=== PATIENT | female | born 1945 ===

== ENCOUNTER 2017-01-24 10:08 | Inpatient (IN) | payer MEDICARE, MEDICAID ==
[2017-01-24 10:15] VITALS: BMI 25.7
[2017-01-24] MEDS ORDERED: levoFLOXacin 750 mg in D5W 750 MG/150 ML BAG IVPB STA (10:34)
[2017-01-24] MEDS ORDERED: Cefepime IV 2 gm in NS 2 GM/100 ML BAG IVPB STA (10:34)
[2017-01-24] MEDS ORDERED: Vancomycin 1gm in NS 250ml 1 GM/250 ML BAG IVPB STA (10:34)
--- NOTE | 2017-01-24 10:56 | ED PDOC ---
Arrival/HPI - General Chief Complaint: Altered Mental Status Time Seen by Provider: 01/24/17 10:34 Historian: Intermediate, EMS - Critical Care Critical Care Minutes: 45 minutes - History of Present Illness Narrative History of Present Illness (Text): 01/24/17 10:39 Ashley Hughes is a 71 year old female, whose past medical history includes COPD , dementia, g-tube, hyperlipidemia and hypertension, presents to the emergency department from [facility] via EMS for respiratory distress and unresponsiveness. Patient is confused at baseline, but responsive to verbal stimuli. However today patient was in respiratory distress, tachypneic and tachycardic. Patient was hypoxic satting at 71% in RA which improved to 94% on oxygen mask and 1 nebulizer treatment. Patient was responsive only to noxious stimuli. Patient was intubated in the field by paramedics and they noted that patient with aspirate in oropharynx. Patient had an distended abdomen and had an X-ray done yesterday which showed abundant stool, but no obstruction. ROS limited due to patient's condition. Time/Duration: 1-3 hours Symptom Course: Unchanged Severity Level: Severe Activities at Onset: Light Past Medical History - Provider Review Nursing Documentation Reviewed: Yes - Infectious Disease Hx of Infectious Diseases: None - Tetanus Immunization Tetanus Immunization: Unknown - Cardiac Hx Cardiac Disorders: Yes Hx Hypertension: Yes Hx Pacemaker: No - Pulmonary Hx Respiratory Disorders: Yes Hx Asthma: Yes Hx Bronchitis: Yes Hx Chronic Obstructive Pulmonary Disease (COPD): Yes - Neurological Hx Neurological Disorder: Yes (cerebral hemorrhage) Hx Dementia: Yes Hx Paralysis: Yes (pt contracted) Hx Syncope: Yes - HEENT Hx HEENT Disorder: No - Renal Hx Renal Disorder: No - Endocrine/Metabolic Hx Endocrine Disorders: No - Hematological/Oncological Hx Blood Disorders: No Hx Blood Transfusions: No (as per son) - Integumentary Hx Dermatological Disorder: No - Musculoskeletal/Rheumatological Hx Musculoskeletal Disorders: Yes - Gastrointestinal Hx Gastrointestinal Disorders: Yes Hx Gastroesophageal Reflux: Yes - Genitourinary/Gynecological Hx Genitourinary Disorders: Yes Hx Incontinence: Yes - Psychiatric Hx Psychophysiologic Disorder: No Hx Emotional Abuse: No (appears cared for) Hx Physical Abuse: No (pt with dependent care ) Hx Substance Use: No - Past Surgical History Past Surgical History: Unable to Obtain - Anesthesia Hx Anesthesia Reactions: No Hx Malignant Hyperthermia: No - Suicidal Assessment Feels Threatened In Home Enviroment: No Family/Social History - Physician Review Nursing Documentation Reviewed: Yes Family/Social History: No Known Family HX Smoking Status: Never Smoked Hx Alcohol Use: No Hx Substance Use: No Hx Substance Use Treatment: No Allergies/Home Meds Allergies/Adverse Reactions: Allergies No Known Allergies Allergy (Verified 01/24/17 10:14) Home Medications: Home Meds Medication Instructions Recorded Confirmed Atorvastatin Calcium [Lipitor] 10 mg PEG HS 04/28/14 01/24/17 Memantine HCl [Namenda Xr] 28 mg PEG DAILY 06/29/14 01/24/17 Acetaminophen [Tylenol 325mg tab] 1,000 mg PEG BID 08/09/16 01/24/17 Ascorbate Calcium [Vitamin C] 500 mg PEG BID 08/09/16 01/24/17 Aspirin [Aspirin Chewable] 81 mg PEG DAILY 08/09/16 01/24/17 Ergocalciferol (Vitamin D2) 50,000 iu PEG QWK 08/09/16 01/24/17 [Vitamin D2] Latanoprost 0.005% Opht [Xalatan 1 drop BOTHEYES HS 08/09/16 01/24/17 Opht] levETIRAcetam [Keppra] 250 mg PEG TID 08/09/16 01/24/17 Albuterol/Ipratropium [Duoneb 3 1 inh INH PRN PRN 01/24/17 01/24/17 mg/0.5 mg (3 ml) UD] Omeprazole [Omeprazole] 20 mg PEG BID 01/24/17 01/24/17 Review of Systems - Review of Systems Systems not reviewed;Unavailable: Respiratory Distress Physical Exam - Physical Exam Narrative Physical Exam (Text): Constitutional: Respiratory distress. Intubated Head: Normocephalic. Atraumatic. Eyes: PERRL. ENT: Moist mucous membranes. Neck: Supple. Cardiovascular: Regular rate. Respiratory: Diffuse wheezing. Ronchi right lung. GI: Soft. Nontender. Distended. g-tube Back: No CVA tenderness. Decubitus ulcer. Skin: No rash. Neurologic: Intubated. Vital Signs Reviewed: Yes Vital Signs Temp Pulse Resp BP Pulse Ox 01/24/17 12:33 101 H 12 62/31 L 96 01/24/17 12:17 100 H 12 78/36 L 96 01/24/17 12:05 96 H 12 78/39 L 96 01/24/17 11:05 107 H 12 86/37 L 96 01/24/17 10:50 107 H 12 75/41 L 96 01/24/17 10:25 103.4 F H 84 12 110/41 L 76 L Temperature: Febrile Blood Pressure: Hypotensive Pulse: Regular Respiratory Rate: Mechanically Ventilated Appearance: Positive for: Non-Toxic Pain Distress: None Mental Status: Positive for: other (unresponsive ) Medical Decision Making ED Course and Treatment: 01/24/17 11:03 Impression: A 71 year old female who presents to the emergency department complaining for respiratory distress and unresponsiveness. Plan: -- Labs -- Chest X-ray -- Levaquin -- Maxipime -- IV fluids -- Vancomycin -- Blood Culture -- Urine Culture -- Urinalysis -- Reassess and disposition Progress Notes: 01/24/17 11:04 Patient was febrile. Rectal Tylenol administered. Code Sepsis called. 01/24/17 11:07 Chest X-ray interpreted by me: Shows ET tube in right main stem. ground water technician at bedside advised to withdraw 2 cms. 01/24/17 12:08 PROCEDURE: CENTRAL LINE PLACEMENT Performed by the emergency provider, Time: 12:08 Consent: Discussion of the risks, benefits, and alternatives to the procedure, along with informed consent was precluded by the urgency of the procedure and the patient condition. Skin Preparation: Hand hygiene performed prior to central venous catheter insertion. Sterile field, sterile drape, sterile technique, and cap and gown were used. The area was cleansed with 2% Chlorhexidine. Location: right IJ Ultrasound guidance: yes Technique: The landmarks for the line placement were identified. The vessel was cannulated and a non-tunneled 7.0 Fr triple lumen was placed using the Seldinger technique. Successful placement: Yes. Line sutured with silk and appropriate dressing applied. Assessment: Good patency and blood return through all three lumens. The ports were appropriately flushed. See post procedure X-Ray interpretation. Post-procedure: Patient tolerated the procedure well with no immediate complications. Levophed begun due to septic shock not completely responsive to NS bolus. ICU accepts patient, recommends CT head/Cspine/chest/abdomen/pelvis en route to ICU. Dr. Mandy forrester. - Lab Interpretations Lab Results: 01/24/17 11:00 01/24/17 11:00 Lab Results 01/24/17 11:00: Sodium 145, Chloride 102, Potassium 4.8, Carbon Dioxide 20 L, Anion Gap 28 H, BUN 61 H, Creatinine 3.7 H, Est GFR ( Amer) 15, Est GFR ( Non-Af Amer) 12, Random Glucose 144 H, Calcium 10.9 H, Phosphorus 6.0 H, Magnesium 6.0 H*, Total Bilirubin 1.8 H, AST 55 H, ALT 58 H, Alkaline Phosphatase 121, Troponin I 0.04 D, NT-Pro-B Natriuret Pep 6770 H, Total Protein 6.9, Albumin 3.2, Globulin 3.7, Albumin/Globulin Ratio 0.9 L 01/24/17 11:00: pO2 42, VBG pH 7.04 L*, VBG pCO2 76.0 H*, VBG HCO3 20.6 L, VBG Total CO2 22.9, VBG O2 Sat (Calc) 63.5, VBG Base Excess -11.3 L, VBG Potassium 4.7, Sodium 141.0, Chloride 108.0 H, Glucose 141 H, Lactate 12.0 H*, FiO2 21.0, Venous Blood Potassium 4.7 01/24/17 11:00: PT 14.6 H, INR 1.35 H, APTT 31.1 H 01/24/17 11:00: WBC 2.1 L* D, RBC 4.21, Hgb 13.2, Hct 37.5, MCV 89.1, MCH 31.4, MCHC 35.2, RDW 13.8, Plt Count 252, MPV 11.1 H, Gran % 48.6 L, Lymph % (Auto) 45.1 H, [place] % (Auto) 5.8, Eos % (Auto) 0.0 L, Baso % (Auto) 0.5, Gran # 1.00 L , Lymph # 0.9 L, [place] # 0.1, Eos # 0.0, Baso # 0.01 I have reviewed the lab results: Yes - RAD Interpretation Radiology Orders: 01/24/17 10:34 CHEST PORTABLE [RAD] Stat 01/24/17 11:07 CHEST PORTABLE [RAD] Stat 01/24/17 12:09 CHEST PORTABLE [RAD] Stat 01/24/17 12:11 CERVICAL SPINE W/O CONTRAST [CT] Stat CHEST,ABDOMEN, PELVIS W/O CONT [CT] Stat HEAD W/O CONTRAST [CT] Stat - Medication Orders Current Medication Orders: NOREPINEPHRINE BIT/0.9 % NACL (Norepinephr-0.9% Nacl 4 Mg/250) 4 mg in 250 mls @ 15.24 mls/hr IV .[id number] PRN; Protocol PRN Reason: TITRATE Last Admin: 01/24/17 12:35 Dose: 22.5 mls/hr Comments: low bp Discontinued Medications Acetaminophen (Tylenol 650 Mg Supp) Confirm Administered Dose 650 mg .ROUTE .STK -MED ONE Stop: 01/24/17 10:16 Last Admin: 01/24/17 10:20 Dose: 650 mg Levofloxacin/Dextrose (Levaquin 750mg) 750 mg in 150 mls @ 100 mls/hr IVPB STAT STA Stop: 01/24/17 12:03 Last Admin: 01/24/17 12:28 Dose: 100 mls/hr Cefepime HCl (Maxipime 2gm) 2 gm in 100 mls @ 100 mls/hr IVPB STAT STA PRN Reason: Protocol Stop: 01/24/17 11:33 Last Admin: 01/24/17 11:00 Dose: 100 mls/hr Sodium Chloride 2,100 ml/ IV (SUPPLIES) 2,100 mls @ 4,082.34 mls/hr IV ONCE ONE PRN Reason: 60 ML/KG/HR Stop: 01/24/17 10:35 Last Admin: 01/24/17 11:10 Dose: 4,082.34 mls/hr Vancomycin HCl (Vancomycin 1gm) 1 gm in 250 mls @ 167 mls/hr IVPB STAT STA PRN Reason: Protocol Stop: 01/24/17 12:03 Norepinephrine Bitartrate 4 mg (/ Sodium Chloride) 254 mls @ 15.24 mls/hr IV .[id number] PRN; Protocol; 4 MCG/MIN PRN Reason: TITRATE PER MD ORDER NOREPINEPHRINE BIT/0.9 % NACL (Norepinephr-0.9% Nacl 4 Mg/250) 4 mg in 250 mls @ 15.24 mls/hr IV DAILY KARIN Norepinephrine Bitartrate (Levophed) Confirm Administered Dose 4 mg IV .STK-MED ONE Stop: 01/24/17 11:59 Last Admin: 01/24/17 12:29 Dose: - Scribe Statement The provider has reviewed the documentation as recorded by the Xander Denney Provider Attestation: All medical record entries made by the Rubiaibtory were at my direction and personally dictated by me. I have reviewed the chart and agree that the record accurately reflects my personal performance of the history, physical exam, medical decision making, and the department course for this patient. I have also personally directed, reviewed, and agree with the discharge instructions and disposition. Disposition/Present on Arrival - Present on Arrival Any Indicators Present on Arrival: No History of DVT/PE: No History of Uncontrolled Diabetes: No Urinary Catheter: No History of Decub. Ulcer: No History Surgical Site Infection Following: None - Disposition Have Diagnosis and Disposition been Completed?: Yes Diagnosis: Altered mental status, Pneumonia, Septic shock Disposition: HOSPITALIZED Disposition Time: 12:15 Patient Plan: Admission Condition: CRITICAL
[2017-01-24 11:11] LABS: BASO # 0.01 K/mm3 (0.0-2.0); BASO % 0.5 % (0.0-3.0); GRAN % 48.6 % (50.0-68.0); HEMATOCRIT 37.5 % (36.0-48.0); LYMPH # 0.9 (1.2-3.4); LYMPH % 45.1 % (22.0-35.0); MEAN CELL VOLUME 89.1 fL (80.0-105.0); MEAN CORPUSCULAR HEMOGLOBIN 31.4 pg (25.0-35.0); MEAN CORPUSCULAR HGB CONC 35.2 g/dl (31.0-37.0); MEAN PLATELET VOLUME 11.1 fl (7.0-11.0); MONO # 0.1 (0.1-0.6); MONO % 5.8 % (1.0-6.0); PLATELET COUNT 252 10^3/uL (120.0-450.0); RED CELL DISTRIBUTION WIDTH 13.8 % (11.5-14.5); VENOUS BLOOD GAS BASE EXCESS -11.3 mmol/L (0.0-2.0); VENOUS BLOOD PH 7.04 (7.32-7.43)
[2017-01-24 11:15] LABS: ADD MANUAL DIFF? NO
[2017-01-24 11:18] LABS: WHITE BLOOD COUNT 2.1 10^3/ul (4.5-11.0)
[2017-01-24 11:23] LABS: ALB/GLOB RATIO 0.9 (1.1-1.8); BILIRUBIN,TOTAL 1.8 mg/dL (0.2-1.3); CALCIUM 10.9 mg/dL (8.4-10.5); POTASSIUM 4.8 mmol/L (3.6-5.0); TOTAL PROTEIN 6.9 g/dL (5.8-8.3)
[2017-01-24 11:25] LABS: INR 1.35 (0.93-1.08); PARTIAL THROMBOPLASTIN TIME 31.1 Seconds (23.7-30.8)
[2017-01-24 11:34] LABS: TROPONIN I 0.04 ng/mL
--- NOTE | 2017-01-24 11:34 | RAD ---
HISTORY: respiratory distress, intubated COMPARISON: 06/29/2014 FINDINGS: LUNGS: Interval family right sided airspace opacities airspace opacities in most dense at the right lung base. PLEURA: No significant pleural effusion identified, no pneumothorax apparent. CARDIOVASCULAR: Top-normal heart size OSSEOUS STRUCTURES: Old right superior rib fractures. Scoliosis and thoraco lumbar spondylosis. Generalized osteopenia VISUALIZED UPPER ABDOMEN: Normal. OTHER FINDINGS: The interval endotracheal tube tip is in the right mainstem bronchus. Recommend retraction IMPRESSION: Multiple right airspace opacities with interval endotracheal tube tip in mainstem bronchus-recommend a retraction. Dr. Fernandez aware
--- NOTE | 2017-01-24 11:36 | RAD ---
HISTORY: withdrew ETT 2cm, repeat COMPARISON: 01/24/2017 at 10:55 a.m. FINDINGS: LUNGS: The previously referenced multiple airspace opacities in the right lung are renoted the less dense opacification at the right lung base. Coalescent asymmetrical pulmonary edema- patchy right lung infiltrate are considerations. The endotracheal tube is been retracted - however is still just at the janae. Consider further retraction 1.5 cm PLEURA: No significant pleural effusion identified, no pneumothorax apparent. CARDIOVASCULAR: Normal. OSSEOUS STRUCTURES: Old superior right rib fractures. Scoliosis and spondylosis and generalized osteopenia VISUALIZED UPPER ABDOMEN: Normal. OTHER FINDINGS: None. IMPRESSION: Interval change in position of endotracheal tube no longer in the right mainstem bronchus -however still low lying at the janae. Recommend additional retraction as above Anomaly right sided patchy airspace opacities -patchy infiltrates- patchy areas of pulmonary edema in metric in the right lung are considerations. Other etiologies not excluded. Clinical correlation continued follow-up recommended
[2017-01-24] MEDS: NOREPINEPHRINE BIT/0.9 % NACL 4 MG/250 ML BAG IV PRN ×3 (12:20→13:15)
--- NOTE | 2017-01-24 12:53 | RAD ---
HISTORY: s/p R IJ and ETT pull back COMPARISON: Earlier same day FINDINGS: LUNGS: Endotracheal tube has been pulled back and is in satisfactory position. Right IJ line is in the right atrium. No pneumothorax. No change in alveolar infiltrates PLEURA: No significant pleural effusion identified, no pneumothorax apparent. CARDIOVASCULAR: Normal. OSSEOUS STRUCTURES: No significant abnormalities. VISUALIZED UPPER ABDOMEN: Normal. OTHER FINDINGS: None. IMPRESSION: Endotracheal tube has been pulled back and is in satisfactory position. Right IJ line is in the right atrium. No pneumothorax. No change in alveolar infiltrates
[2017-01-24 13:11] LABS: VENOUS BLOOD GAS BASE EXCESS -13.9 mmol/L (0.0-2.0)
[2017-01-24 13:14] LABS: VENOUS BLOOD PH 6.97 (7.32-7.43)
[2017-01-24] MEDS ORDERED: Vasopressin 20 UNITS in Dextrose 5% In Water 100 ML IV SCH (13:45)
[2017-01-24 13:47] LABS: ARTERIAL BLOOD GAS HCO3 16.8 mmol/L (21-28); ARTERIAL BLOOD GAS O2 CAPACITY 14.9 mL/dl (16-24); ARTERIAL BLOOD GAS O2 CONTENT 12.5 ML/dl (15-23); ARTERIAL BLOOD HGB O2 SAT 81.9 % (95.0-98.0); CARBOXYHEMOGLOBIN 1.5 % (0.5-1.5); HHB 15.8 % (0-5); METHEMOGLOBIN 0.8 % (0.0-3.0)
[2017-01-24] MEDS ORDERED: EPINEPHrine- 1 MG in Sodium Chloride 0.9% 50 ML IV PRN (13:59)
[2017-01-24] MEDS ORDERED: Albuterol-Ipratrop 3 mg / 0.5 (3 ml) UD IH SCH (14:00)
[2017-01-24] MEDS ORDERED: metroNIDAZOLE IV 500 mg/100 ml 500 MG/100 ML BAG IVPB SCH (14:00)
[2017-01-24 15:12] VITALS: TEMP 100.2
--- NOTE | 2017-01-24 15:31 | CT ---
PROCEDURE: CT HEAD WITHOUT CONTRAST. HISTORY: ams COMPARISON: 03/03/2015 TECHNIQUE: Axial computed tomography images were obtained through the head/brain without intravenous contrast. Radiation dose: Total exam DLP = 687 mGy-cm. This CT exam was performed using one or more of the following dose reduction techniques: Automated exposure control, adjustment of the mA and/or kV according to patient size, and/or use of iterative reconstruction technique. FINDINGS: HEMORRHAGE: No intracranial hemorrhage. BRAIN: No mass effect or edema. There is a moderate degree of atrophy. There is moderate microvascular disease in the periventricular white matter. VENTRICLES: Unremarkable. No hydrocephalus. CALVARIUM: Unremarkable. PARANASAL SINUSES: Unremarkable as visualized. No significant inflammatory changes. MASTOID AIR CELLS: Unremarkable as visualized. No inflammatory changes. OTHER FINDINGS: None. IMPRESSION: Moderate atrophy. Moderate microvascular disease in the periventricular white matter. No acute findings
--- NOTE | 2017-01-24 15:55 | CT ---
PROCEDURE: CT Chest, Abdomen and Pelvis without intravenous contrast HISTORY: dyspnea, abdominal distention COMPARISON: None. TECHNIQUE: Radiation dose: Total exam DLP = 682 mGy-cm. This CT exam was performed using one or more of the following dose reduction techniques: Automated exposure control, adjustment of the mA and/or kV according to patient size, and/or use of iterative reconstruction technique. FINDINGS: CT CHEST WITHOUT CONTRAST: LUNGS: Patchy alveolar infiltrates are seen in the upper lobes. There is more dense consolidation in the lower lobes adjacent to moderate pleural effusions MEDIASTINUM: Unremarkable. Normal caliber aorta and pulmonary arterial trunk. Normal size heart. LYMPH NODES: Unremarkable. PLEURA: Unremarkable. No pneumothorax. No pleural fluid. BONES: Unremarkable. OTHER FINDINGS: None. CT ABDOMEN AND PELVIS: LIVER: There is a small amount of portal venous air seen in the left lobe on image 79 series 2. GALLBLADDER AND BILE DUCTS: Unremarkable. PANCREAS: Unremarkable. No gross lesion or ductal dilatation. SPLEEN: Unremarkable. ADRENALS: Unremarkable. No mass. KIDNEYS AND URETERS: Unremarkable. No hydronephrosis. No solid mass. VASCULATURE: Unremarkable. No aortic aneurysm. BOWEL: There is evidence of ischemic bowel with pneumatosis of small bowel in the pelvis. There is also air in the mesenteric veins which extends into the portal veins. Small droplets of extra luminal gas can also be seen. The gastrostomy tube is outside of the stomach and peritoneal cavity. There is a large amount of subcutaneous air probably related to this catheter. These findings were reviewed with Dr Fernandez at 3:45 p.m. APPENDIX: Normal appendix. PERITONEUM: Unremarkable. No free fluid. No free air. LYMPH NODES: Unremarkable. No enlarged lymph nodes. BLADDER: Unremarkable. REPRODUCTIVE: Unremarkable. BONES: No acute fracture. OTHER FINDINGS: None. IMPRESSION: Pneumatosis of the small bowel in the pelvis with air in the mesenteric veins and portal venous system consistent with bowel ischemia. Suboptimal position of gastrostomy tube in the subcutaneous tissues of the anterior abdomen with a large amount of subcutaneous air. Bilateral pneumonia and pleural effusions
--- NOTE | 2017-01-24 15:59 | CT ---
PROCEDURE: CT Cervical Spine without contrast HISTORY: Patient found on floor COMPARISON: None available. TECHNIQUE: Axial computed tomography images were obtained of the cervical spine without the use of intravenous contrast. Coronal and sagittal reformatted images were created and reviewed. Radiation dose: Total exam DLP = 606 mGy-cm. This CT exam was performed using one or more of the following dose reduction techniques: Automated exposure control, adjustment of the mA and/or kV according to patient size, and/or use of iterative reconstruction technique. FINDINGS: VERTEBRAE: No fracture. Normal alignment. No destructive bony lesion. DISCS/SPINAL CANAL/NEURAL FORAMINA: No significant central canal or neural foraminal stenosis. Discs heights are grossly preserved. PARASPINAL SOFT TISSUES: Unremarkable. OTHER FINDINGS: None. IMPRESSION: No acute fracture
--- NOTE | 2017-01-24 16:20 | CARD ---
APPROVED REPORT EKG Measurement Heart [id number] <Conclusion> Normal sinus rhythm ST & T wave abnormality, consider anterior ischemia Abnormal ECG
[2017-01-24 16:42] VITALS: RESP 35
[2017-01-24] MEDS ORDERED: NOREPINEPHRINE BIT/0.9 % NACL 4 MG/250 ML BAG IV SCH (17:30)
--- NOTE | 2017-01-24 17:41 | CP.PCM.PCO ---
Physician Communication Note - Physician Communication Note Physician Communication Note: Pt Terminal/Surgery too late to help/ bowel- sepsis-Pneumonia([facility])
[2017-01-24] MEDS ORDERED: Meropenem 1g/NS 100mL IVPB 1 GM/100 ML PIGGYBACK IVPB SCH ×2 (17:57→22:00)
--- NOTE | 2017-01-24 18:26 | CP.PCM.CON ---
History of Present Illness - History of Present Illness History of Present Illness: Infectious Disease Consultation: January 24, 2017 71 yo female with extensive past medical history but unable to communicate her history at this point in time sent to [facility] for unresponsiveness, fevers, and respiratory distress. In nursing facility patient was already hypoxic with 71% on room air. At best, she reacted to noxious stimuli. Patient was intubated in the field. EMS noted aspirate in throat. X-ray done yesterday show abundant stool in colon. CT of the abdomen now is showing pneumatosis of the small bowel in the pelvis with air in the mesenteric veins and portal venous system consistent with bowel ischemia. Suboptimal position of the gastrostomy tube in the subcutaneous tissues of the anterior abdomen with a large amount of subcutaneous air. Bilateral penumonia and pleural effusions. PMHx: Asthma, bronchitis, COPD, unsteady gait, GERDs, urinary incontinence, dementia, hypertension, history of multiple falls, cerebral hemmorhage, syncope history PSHx: Unable to Obtain, PEG done Allergies: NKDA Social Hx: No tobacco, EtOH, or illicit drug use Active Medications Albuterol/Ipratropium (Duoneb 3 Mg/0.5 Mg (3 Ml) Ud) 3 ml IH Q6H KARIN Stop: 01/25/17 02:01 Heparin Sodium (Porcine) (Heparin) 5,000 units SC Q8H KARIN PRN Reason: Protocol Last Admin: 01/24/17 14:00 Dose: 5,000 units Hydrocortisone Sodium Succinate (Solu-Cortef) 50 mg IV Q6H KARIN Last Admin: 01/24/17 14:00 Dose: 50 mg Metronidazole (Flagyl) 500 mg in 100 mls @ 100 mls/hr IVPB Q8 KARIN PRN Reason: Protocol Stop: 01/25/17 06:59 Last Admin: 01/24/17 17:48 Dose: 100 mls/hr Vasopressin 20 units/ Dextrose 101 mls @ 9.09 mls/hr IV .Q11H7M KARIN; 0.03 U/MIN PRN Reason: Protocol Last Admin: 01/24/17 13:55 Dose: 9.09 mls/hr Epinephrine HCl 1 mg/ Sodium (Chloride) 51 mls @ 15.3 mls/hr IV .Q3H20M PRN; Protocol; 5 MCG/MIN PRN Reason: TITRATE PER MD ORDER Last Admin: 01/24/17 15:03 Dose: 5 mcg/min, 15.3 mls/hr NOREPINEPHRINE BIT/0.9 % NACL (Norepinephr-0.9% Nacl 4 Mg/250) 4 mg in 250 mls @ 75 mls/hr IV .Q3H20M KARIN; 20 MCG/MIN PRN Reason: Protocol Last Admin: 01/24/17 17:30 Dose: 75 mls/hr Meropenem 1g/NS 100mL IVPB (Meropenem 1g/Ns 100ml Ivpb) 1 gm in 100 mls @ 100 mls/hr IVPB Q12 KARIN PRN Reason: Protocol Amikacin Sulfate 500 mg/ (Sodium Chloride) 102 mls @ 204 mls/hr IVPB Q8 KARIN PRN Reason: Protocol Stop: 01/24/17 18:29 Pantoprazole Sodium (Protonix Inj) 40 mg IVP DAILY KARIN Last Admin: 01/24/17 14:02 Dose: 40 mg Family Hx: none given Family at bedside. ROS: Unable to Obtain from patient. Past Patient History - Infectious Disease Hx of Infectious Diseases: None - Tetanus Immunizations Tetanus Immunization: Unknown - Past Social History Smoking Status: Never Smoked - CARDIAC Hx Cardiac Disorders: Yes Hx Hypertension: Yes Hx Pacemaker: No - PULMONARY Hx Respiratory Disorders: Yes Hx Asthma: Yes Hx Bronchitis: Yes Hx Chronic Obstructive Pulmonary Disease (COPD): Yes - NEUROLOGICAL Hx Neurological Disorder: Yes (cerebral hemorrhage) Hx Dementia: Yes Hx Paralysis: Yes (pt contracted) Hx Syncope: Yes - HEENT Hx HEENT Problems: No - RENAL Hx Chronic Kidney Disease: No - ENDOCRINE/METABOLIC Hx Endocrine Disorders: No - HEMATOLOGICAL/ONCOLOGICAL Hx Blood Disorders: No Hx Blood Transfusions: No (as per son) - INTEGUMENTARY Hx Dermatological Problems: No - MUSCULOSKELETAL/RHEUMATOLOGICAL Hx Musculoskeletal Disorders: Yes - GASTROINTESTINAL Hx Gastrointestinal Disorders: Yes Hx Gastroesophageal Reflux: Yes - GENITOURINARY/GYNECOLOGICAL Hx Genitourinary Disorders: Yes Hx Incontinence: Yes - PSYCHIATRIC Hx Psychophysiologic Disorder: No Hx Emotional Abuse: No (appears cared for) Hx Physical Abuse: No (pt with dependent care ) Hx Substance Use: No - SURGICAL HISTORY Hx Surgeries: No - ANESTHESIA Hx Anesthesia Reactions: No Hx Malignant Hyperthermia: No Meds Allergies/Adverse Reactions: Allergies Allergy/AdvReac Type Severity Reaction Status Date / Time No Known Allergies Allergy Verified 01/24/17 14:18 - Medications Medications: Current Medications Albuterol/Ipratropium (Duoneb 3 Mg/0.5 Mg (3 Ml) Ud) 3 ml IH Q6H [facility] Stop: 01/25/17 02:01 Heparin Sodium (Porcine) (Heparin) 5,000 units SC Q8H KARIN PRN Reason: Protocol Last Admin: 01/24/17 14:00 Dose: 5,000 units Hydrocortisone Sodium Succinate (Solu-Cortef) 50 mg IV Q6H [facility] Last Admin: 01/24/17 14:00 Dose: 50 mg Metronidazole (Flagyl) 500 mg in 100 mls @ 100 mls/hr IVPB Q8 KARIN PRN Reason: Protocol Stop: 01/25/17 06:59 Meropenem 1g/NS 100mL IVPB (Meropenem 1g/Ns 100ml Ivpb) 1 gm in 100 mls @ 100 mls/hr IVPB Q12 KARIN PRN Reason: Protocol Stop: 01/24/17 22:59 Vasopressin 20 units/ Dextrose 101 mls @ 9.09 mls/hr IV .Q11H7M KARIN; 0.03 U/MIN PRN Reason: Protocol Last Admin: 01/24/17 13:55 Dose: 9.09 mls/hr Epinephrine HCl 1 mg/ Sodium (Chloride) 51 mls @ 15.3 mls/hr IV .Q3H20M PRN; Protocol; 5 MCG/MIN PRN Reason: TITRATE PER MD ORDER Last Admin: 01/24/17 15:03 Dose: 5 mcg/min, 15.3 mls/hr Norepinephrine Bitartrate 4 mg (/ Sodium Chloride) 254 mls @ 76.2 mls/hr IV .Q3H20M PRN; Protocol; 20 MCG/MIN PRN Reason: TITRATE PER MD ORDER Last Admin: 01/24/17 16:58 Dose: 20 mcg/min, 76.2 mls/hr Pantoprazole Sodium (Protonix Inj) 40 mg IVP DAILY [facility] Last Admin: 01/24/17 14:02 Dose: 40 mg Physical Exam - Constitutional Appears: Toxic, In Acute Distress, Chronically Ill Additional comments: obtunded, intubated, and ventilated. - Head Exam Additional comments: intubated and ventilated - Eye Exam Eye Exam: PERRL Pupil Exam: PERRL Additional comments: anticteric, conjunctiva pink - ENT Exam ENT Exam: Mucous Membranes Moist, Normal External Ear Exam, TM's Normal Bilaterally - Neck Exam Additional comments: intubated and ventilated. - Respiratory Exam Respiratory Exam: Decreased Breath Sounds, Rhonchi, Wheezes Additional comments: intubated and ventilated - Cardiovascular Exam Cardiovascular Exam: REGULAR RHYTHM, RRR, +S1, +S2 Additional comments: hypotensive even with pressors for blood pressure. - GI/Abdominal Exam GI & Abdominal Exam: Distended, Soft. absent: Tenderness Additional comments: G-tube in place - Extremities Exam Extremities exam: Positive for: normal inspection Additional comments: weak distal pulses. - Neurological Exam Additional comments: intubated and ventilated. Very poorly responsive. - Psychiatric Exam Psychiatric exam: Normal Affect, Normal Mood - Skin Skin Exam: Intact, Normal Color Results - Vital Signs Recent Vital Signs: Last Vital Signs Temp 100.2 F H 01/24/17 16:00 Pulse 99 H 01/24/17 16:00 Resp 35 H 01/24/17 16:00 BP 71/43 L 01/24/17 16:00 Pulse Ox 82 L 01/24/17 16:00 - Labs Result Diagrams: 01/24/17 11:00 01/24/17 11:00 Labs: Laboratory Results - last 24 hr 01/24/17 01/24/17 13:08 13:43 pCO2 54 H pO2 61 H 55.0 L HCO3 16.8 L ABG pH 7.10 L* ABG Total CO2 18.5 L ABG O2 Saturation 83.8 L ABG O2 Content 12.5 L ABG Base Excess -12.7 L ABG Hemoglobin 10.8 L ABG Carboxyhemoglobin 1.5 POC ABG HHb (Measured) 15.8 H ABG Methemoglobin 0.8 ABG O2 Capacity 14.9 L VBG pH 6.97 L* VBG pCO2 84.0 H* VBG HCO3 19.3 L VBG Total CO2 21.9 L VBG O2 Sat (Calc) 82.0 H VBG Base Excess -13.9 L VBG Potassium 4.9 Hgb O2 Saturation 81.9 L Sodium 140.0 Chloride 112.0 H Glucose 181 H Lactate 8.7 H* FiO2 21.0 60.0 Venous Blood Potassium 4.9 Assessment & Plan - Assessment and Plan (Free Text) Assessment: 71 yo female with altered mental status, respiratory distress, and hypotension. Aspiration pneumonia. More importantly, the patient found to have signs of necrotic/ischemic bowel on CT scan. Patient prognosis is very poor. The patient's best option would typically be surgery but given her current medical condition, it is doubtful that she would survive a large scale colectomy and the degree of peritonitis as well as the bilateral pneumonia (likely aspiration ) worsen the chances even more. Dismal prognosis for the patient given extent of bowel ischemia, level of hypotension, and extent of peritonitis. Case discussed with Dr. Marsh. Supportive care Thank you for allowing me to participate in the care of the patient, we will follow with you.
[2017-01-24] MEDS ORDERED: Pneumococcal 23-Valent Vaccine IM ONE (18:54)
--- NOTE | 2017-01-24 19:08 | CON ---
DATE: 01/24/2017 HISTORY OF PRESENT ILLNESS: The patient is a 71-year-old lady with history of dementia, seizure disorder, hypercholesterolemia who was found unresponsive in her room. EMS was called and the patient was delivered to [facility] ER. She was intubated for airway protection in the field. Reportedly, vomitus was found in the hypopharynx during direct laryngoscopy. In the Emergency Room, the patient was found hypotensive with elevated lactic acid level and a central line was placed and norepinephrine was started. Chest x- ray revealed patchy infiltrates bilaterally, right more than left. Septic workup initiated and broad spectrum antibiotics started. ICU consult was called for further management and monitoring. PAST MEDICAL HISTORY: Seizure disorder, dementia. ALLERGIES: NKDA. MEDICATIONS: At home, Keppra, vitamin C, Namenda, vitamin D2, omeprazole, Lipitor, aspirin, eyedrops. FAMILY HISTORY: Noncontributory. REVIEW OF SYSTEMS: Revealed 12 organ system other than mentioned in history of present illness is negative. PHYSICAL EXAMINATION: VITAL SIGNS: The patient is on 20 mcg per minute of Levophed. Her blood pressure, however is 81/53 (stress dose steroids given and vasopressin started) . The patient is on PRVC 60/5, 25, 400. GENERAL: The patient is not overbreathing the vent. She is not on any sedation. HEAD AND NECK: Atraumatic. LUNGS: Few crackles bilaterally, right more than left. HEART: Regular rate and rhythm. S1, S2 are distant. ABDOMEN: Soft, distended, nontender, no peritoneal signs. MUSCULOSKELETAL: No C/C/E. NEUROLOGIC: The patient is not responsive to stimuli. SKIN: Moist. PSYCHIATRIC: The patient is not responsive to stimuli. LABORATORY DATA: WBC 2.1, hemoglobin 13.2, platelet count 252. Sodium 145, potassium 4.8, chloride 102, carbon dioxide 20, BUN 61, creatinine 3.7 (labs 2 years ago showed normal creatinine), glucose 144, AST 55, ALT 58. Troponin 0.04. INR 1.35, VBG showed pH 6.97, lactic acid 8.7 down from 12. CAT scan of the head, chest, abdomen and pelvis is pending. ASSESSMENT AND PLAN: This is a 71-year-old lady who presented with aspiration pneumonitis with severe systemic inflammatory response syndrome reaction. She is in distributive shock. Broad spectrum antibiotics started. Blood culture and urine culture ordered. Procalcitonin is pending. Most likely source is aspiration pneumonitis versus pneumonia. Abdomen is distended and CAT scan of the abdomen is ordered. The patient has multiorgan dysfunction syndrome related to distributive shock including acute kidney injury, respiratory failure , acute respiratory distress syndrome, transaminitis and encephalopathy. Neurologic: The patient is not on any sedation; however, is unresponsive. CAT scan of the head is pending. If no acute intracranial pathology found, will proceed with EEG to rule out nonconvulsive status. Pulmonary will proceed with protective lung ventilation strategy with approximation of tidal volume to 6 mL per predicted body weight and maintain plateau pressure below 30. We will continue with PEEP/ FIO2 ratio. Once/if shock resolves, we will proceed with conservative fluid management. Meanwhile, we will continue with aggressive fluid resuscitation. The patient received 30 mL per kilogram of IV fluids and currently is on norepinephrine 20 mcg per minute, vasopressin 0.03 units per minute and stress dose steroids. We will continue with head of bed elevated more than 35 degrees, conservative oxygen management, deep venous thrombosis and gastrointestinal prophylaxis. Once shock resolved, we will proceed with weaning trial. Cardiovascular: The patient is hemodynamically unstable and requires vasopressor support. We will maintain mean arterial pressure more than 65. We will trend troponin and get echocardiogram. Preliminary bedside point of care ultrasound revealed hyperactive left ventricle without sign of left ventricular systolic dysfunction.. Added epinephrine drip as patient continue to be hypotensive despite NE, vasopressin, stress dose steroids (CATS trial, surviving sepsis guidelines) Renal: KORI/ATN; will continue with fluid resuscitated Endo: maintain BG 140-180 ID septic shock: abx, septic work up, CT abdo is pending Addendum: CT abdo: ischemic bowel, pneumatosis coli and air in mesenteric veins. Discussed with Dr. Somers and requested emergent surgical consult. ccm time 40 min ePdro Marsh MD cc: [id number] TT: 01/24/2017 19:07:56 Confirmation # [id number] Dictation # [id number] jn SIMONE
[2017-01-24 21:07] VITALS: BP 93/70; PULSE 55; O2SAT 79
--- NOTE | 2017-01-24 23:23 | CP.PCM.PRO ---
Pronouncement of Note - Clinical Findings Physical Exam: No Response Verbal/Painful Stimuli, Absent Peripheral Pulses{ Carotid & Femoral}, Absent Heart & Breath Sounds, No Pupillary Light Reflex, Absence of Vital Signs - Pronouncement Time Time of Pronouncement of : 20:23 - Notifications Pronouncement Notifications: Family Notified, Atending Notified Lathe Machinist Notified: Yes - [place] [id number] Additional Comments: Family at bedside; condolences offered.
[2017-01-25] MEDS ORDERED: NOREPINEPHRINE BIT/0.9 % NACL 4 MG/250 ML BAG IV SCH (10:00)
--- NOTE | 2017-01-26 08:38 | HP ---
CHIEF COMPLAINT: Altered mental status, shortness of breath. HISTORY OF PRESENT ILLNESS: The patient is a 71-year-old female with past medical history of COPD, dementia, G-tube placement, hypercholesterolemia, hypertension. Came to the Emergency Room from [facility] by EMS for respiratory distress and unresponsiveness. The patient is confused on the baseline but responsive to verbal stimuli normally. The patient was in respiratory distress, tachypneic and tachycardic. The patient was hypoxic at 71 degrees in room air, which improved to 94 with oxygen with mask and 1 nebulizer treatment. The patient was responsive only to noxious stimuli. The patient was intubated in the field by the paramedics and they noted the patient with aspiration in the oropharynx. The patient had distended abdomen and x-ray done yesterday which showed abundant stool. The patient was , obstructed. The patient was seen by me in the Emergency Room. The patient was intubated, not able to give review of system, was not able to give the complaints, but I know this patient from [facility]. PAST MEDICAL HISTORY: Hypertension, respiratory distress, asthma, bronchitis, COPD, history of cerebral hemorrhage, dementia, legs are contracted, history of syncopal attack, GERD, dyspepsia, had a GI tube. FAMILY HISTORY: Father and mother noncontributory. HABITS: Never smoked, no drugs, no ethanol. ALLERGIES: The patient is not allergic with any medications. HOME MEDICATIONS: Lipitor, Namenda, Tylenol, vitamin C chewable, vitamin D, omeprazole. REVIEW OF SYSTEMS: The patient was seen and examined on the bedside on 2016, but is not able to give review of systems, but does not look like has fever, but is intubated. PHYSICAL EXAMINATION: VITAL SIGNS: Temperature 103.4, pulse 84, respiratory rate 12, blood pressure 110/41, pulse oximetry 76. HEENT: Head normocephalic, atraumatic. Eyes closed. Nose patent. NECK: Supple. CHEST: Bilaterally symmetrical. HEART: Regular rate and rhythm. RESPIRATORY: Diffuse wheezing, rhonchi both sides, especially of the right lung. STOMACH: Soft, nontender. No organomegaly, but has G-tube. EXTREMITIES: No edema, no cyanosis. NEUROLOGIC: Cannot be done because of patient's condition. LABORATORY DATA: White blood cell is 2.1, hemoglobin 13.2, hematocrit 37.5, platelets 252. Sodium 141, potassium 4.8, BUN 51, creatinine 3.7, and glucose 144. ASSESSMENT AND PLAN: The patient is a 71-year-old lady with leukopenia, renal insufficiency, dehydration, hyperglycemia, came with respiratory failure, altered mental status, pneumonia, septic shock, intubated, history of asthma, bronchitis, chronic obstructive pulmonary disease, unsteady gait, gastroesophageal reflux disease, dyspepsia, urinary incontinence, dementia, hypertension, history of multiple falls, cerebral hemorrhages, syncope, aspiration pneumonia. CAT scan shows necrotic ischemic bowel on CT. The patient's prognosis was very poor. According to that, the patient needs surgery but, given her current medical condition, it is doubtful that she would survive a large scale colectomy and a degree of peritonitis as well as bilateral pneumonia, likely aspiration, worsened with dismal prognosis. I reviewed Dr. Duenas's, Dr. Marsh's and Dr. Jose Somers' communication report. Because of the patient's condition, the patient's family made her DNR and she on 01/24/2017 at 2322. The patient was pronounced by Dr. Flaco Avendaño. Eva Galvan MD cc: [id number] TT: 01/26/2017 08:37:11 ching NICHOLS
--- NOTE | 2017-01-26 13:05 | DS ---
The patient is a 71-year-old female. The patient was admitted on 01/24/2017, on 01/24/2017. The patient had respiratory distress, was intubated. The patient was made DNR and in the unit. Krunal alon is aware. For more details, see sebas Melara. Eva Galvan MD cc: [id number] TT: 01/26/2017 13:05:16 en
== END 2017-01-24 20:23 | DRG 871 ==
LOC: ED 10:08 → ERH 12:26 → CCU 15:30
PROVIDERS: ADMIT Internal Medicine; ATTEND Internal Medicine
PROC: 5A1935Z Respiratory Ventilation, Less than 24 Consecutive Hours (ICD-10-PCS; principal; 2017-01-24)
PROC: 0BH17EZ Insertion of Endotracheal Airway into Trachea, Via Natural or Artificial Opening (ICD-10-PCS; 2017-01-24)
PROC: 05HM33Z Insertion of Infusion Device into Right Internal Jugular Vein, Percutaneous Approach (ICD-10-PCS; 2017-01-24)
PROC: B543ZZA Ultrasonography of Right Jugular Veins, Guidance (ICD-10-PCS; 2017-01-24)
DX: A41.9 Sepsis, unspecified organism (principal); R65.21 Severe sepsis with septic shock; J69.0 Pneumonitis due to inhalation of food and vomit; J96.91 Respiratory failure, unspecified with hypoxia; K65.9 Peritonitis, unspecified; G93.40 Encephalopathy, unspecified; N17.9 Acute kidney failure, unspecified; J90 Pleural effusion, not elsewhere classified; K55.9 Vascular disorder of intestine, unspecified; I10 Essential (primary) hypertension; E86.0 Dehydration; K21.9 Gastro-esophageal reflux disease without esophagitis; J44.9 Chronic obstructive pulmonary disease, unspecified; F03.90 Unspecified dementia, unspecified severity, without behavioral disturbance, psychotic disturbance, mood disturbance, and anxiety; R26.81 Unsteadiness on feet; Z66 Do not resuscitate; E78.00 Pure hypercholesterolemia, unspecified; G40.909 Epilepsy, unspecified, not intractable, without status epilepticus; E78.5 Hyperlipidemia, unspecified; Z93.1 Gastrostomy status; Z91.81 History of falling